=== PATIENT | female | born 1980 | race Caucasian/White ===

== ENCOUNTER 2021-08-05 10:36 | Outpatient (CLI) | payer OTHER | END 2021-08-05 10:37 | disposition home or self-care (01) | LOC: CSHRAD 10:36 | PROVIDERS: ATTEND Orthopaedic Surgery Adult Reconstructive Orthopaedic Surgery | DX: M54.2 Cervicalgia (principal); M54.50 Low back pain, unspecified; Z98.890 Other specified postprocedural states | CPT/HCPCS: 72050; 72100 ==